=== PATIENT | female | born 1995 | race Caucasian/White ===

== ENCOUNTER 2016-12-30 21:44 | Emergency (ER) | payer OTHER ==
--- NOTE | ~2016-12-30 | ER ---
PATIENT'S NAME: [facility] AGE: 21 Y [address] ROOM: [place] [address] LOCATION: [facility] ADMIT DATE: 12/30/2016 ER/Outpatient Report DISCHARGE DATE: 12/30/2016 FAMILY PHYSICIAN: Physician, Unknown ATTENDING PHYSICIAN: Cuba Alston Time of Arrival: 2145 hours. Time of Exam: 2145 hours. CHIEF COMPLAINT: Left arm numbness. HISTORY OF PRESENT ILLNESS: The patient reports around 8 o'clock tonight she was getting ready to go out to dinner with some friends and began feeling anxious, started having some numbness of her left arm and her left leg, started breathing rapidly and just could not get herself to calm down. States she has had problems like this before. Reports she is under a lot of stress right now at school. She is a student at [employer]. ALLERGIES: NO KNOWN ALLERGIES. CURRENT MEDICATIONS: Medications are on her chart and reviewed by me. PAST MEDICAL HISTORY: Bowel problems, states she has frequent episodes of diarrhea. PAST SURGERIES: EGD, last menstrual period, 12/28/2016. SOCIAL HISTORY: Denies use of tobacco, drugs, and drinks alcohol on a social occasion only. REVIEW OF SYSTEMS: All negative other than those mentioned in the HPI. PHYSICAL EXAMINATION: VITAL SIGNS: She weighs 65 kg. Blood pressure is 124/76, pulse of 117, respirations 26, temperature of 99.8, and O2 saturations 100% on room air. GENERAL: She is awake, alert, and oriented x4. SKIN: [place], warm, and dry. LUNGS: Respirations are even and nonlabored. Lung sounds are clear throughout. PATIENT'S NAME: JIM SMARTIOLA [facility] AGE: 21 Y [address] ROOM: [place] [address] LOCATION: [facility] ADMIT DATE: 12/30/2016 ER/Outpatient Report DISCHARGE DATE: 12/30/2016 FAMILY PHYSICIAN: Physician, Unknown ATTENDING PHYSICIAN: Cuba Alston HEART: Regular rate and rhythm. ABDOMEN: Soft and nondistended. Bowel sounds are present. She walked in with a steady even gait. Moves all extremities strongly and equally. LABORATORY DATA: CBC was completed, it is within normal limits. Chem panel is within normal limits. Thyroid was within normal limits. EMERGENCY DEPARTMENT COURSE: The patient continued to have anxiety and difficulty getting her breathing slowed down. She was given Valium 2 mg p.o. It did help relax she reports. She was able to get up and ambulate to the bathroom without any difficulty. IMPRESSION: Anxiety episode. PLAN: Home. Rest. Relaxation techniques were discussed. She is to follow up with her primary provider if symptoms persist or worsen in the next 1-2 days. She verbalized understanding. RAFITA CASTRO APRN FOR [facility]/connie /[id number] d: 12/31/16 0303 t: 01/01/17 1333, OUTPATIENT REPORT
[2016-12-30 22:13] LABS: BASOPHIL % 0.6 %; EOSINOPHIL % 0.3 %; HEMOGLOBIN 13.2 g/dL (11.0-15.0); IMMATURE GRANULOCYTE % 0.3 %; LYMPHOCYTE # 2.6 K/uL (0.8-4.0); LYMPHOCYTE % 35.9 %; MCH 29.1 pg (27.0-34.0); MCHC 34.7 gm/dL (32.0-36.5); MCV 83.9 fl (83.0-98.0); MONOCYTE # 0.5 K/uL (0.0-1.0); MONOCYTE % 6.6 %; NEUTROPHIL # (ANC) 4.1 K/uL (1.8-7.8); NEUTROPHIL % 56.3 %; NRBC % 0 /100WBC (0-0.00); PLATELET COUNT 245 K/uL (150-450); RBC 4.53 M/uL (3.50-5.00); RDW-CV 12.1 % (11.9-14.6); WBC 7.2 K/uL (4.0-11.0)
[2016-12-30 22:36] LABS: ALBUMIN 3.7 gm/dL (3.5-5.0); ALK PHOS 59 IU/L (33-138); ALT 24 IU/L (12-78); ANION GAP 11.3 (10.0-19.0); AST 22 IU/L (10-40); BLOOD UREA NITROGEN 9 mg/dL (6-24); CALCIUM 8.4 mg/dL (8.5-10.5); CHLORIDE 107 mMol/L (96-110); CO2 27 mMol/L (22-32); ESTIMATED GFR (MDRD EQUATION) > 60; POTASSIUM 3.3 mMol/L (3.7-5.1); SODIUM 142 mMol/L (135-145); TOTAL BILIRUBIN 0.3 mg/dL (0.0-1.5); TOTAL PROTEIN 7.4 g/dL (6.0-8.4)
== END 2016-12-30 22:52 | disposition disaster alternative care site (69) ==
LOC: GMED 21:44
PROVIDERS: Nurse Practitioner Family
DX: F41.9 Anxiety disorder, unspecified (principal)